=== PATIENT | female | born 1975 | race Caucasian/White ===

== ENCOUNTER 2019-05-29 12:43 | Emergency (ER) | payer MEDICAID ==
[~2019-05-29] VITALS: Ht 162.6 cm; Wt 81.0 kg
[2019-05-29] MEDS ORDERED: KETOROLAC 30MG/ML VIAL IV STA (16:08)
[2019-05-29] MEDS ORDERED: SODIUM CHLORIDE 0.9% 1,000 ML IV ONE (16:08)
[2019-05-29 16:30] LABS: CLARITY URINE TURBID (CLEAR); COLOR URINE YELLOW (YELLOW); KETONES URINE NEGATIVE (NEGATIVE); LEUKOCYTE ESTERASE URINE 3+ (NEGATIVE); NITRITE URINE POSITIVE (NEGATIVE); OCCULT BLOOD URINE 3+ (NEGATIVE); PH URINE 5.5 (4.5-8.0); PROTEIN URINE 1+ (NEGATIVE); SPECIFIC GRAVITY URINE 1.013 (1.005-1.030); UROBILINOGEN URINE 0.2 E.U./dL (0.2-1.0)
[2019-05-29 16:48] LABS: BASOPHILS % 0.5 % (0.0-2.0); HEMATOCRIT. 37.8 % (36.0-48.0); HEMOGLOBIN. 12.6 g/dL (12.0-16.0); LYMPHOCYTES % 30.3 % (20.0-50.0); MEAN CORPUSCULAR HEMOGLOBIN 27.3 pg (28.0-32.0); MEAN CORPUSCULAR VOLUME 81.8 fL (81.0-99.0); MEAN PLATELET VOLUME 8.1 fl (7.4-10.4); MONOCYTES % 6.4 % (2.0-8.0); NEUTROPHILS % 61.8 % (40.0-76.0); PLATELET 303 x1000/uL (130-400); RED BLOOD CELL COUNT 4.62 mill/uL (4.2-5.4); RED CELL DISTRIBUTION WIDTH 14.4 % (11.6-14.6)
[2019-05-29 16:52] LABS: CHLORIDE 108 mEq/L (98-107)
[2019-05-29] MEDS ORDERED: CEFTRIAXONE 2 G PREMIX 50 ML IV ONE (17:15)
[2019-05-29 19:21] VITALS: BP 121/60
== END 2019-05-29 19:24 | disposition home or self-care (01) ==
LOC: ER 12:43
DX: N12 Tubulo-interstitial nephritis, not specified as acute or chronic (principal); R51 Headache; R31.9 Hematuria, unspecified; R42 Dizziness and giddiness; R30.0 Dysuria; R50.9 Fever, unspecified; Z90.49 Acquired absence of other specified parts of digestive tract; Z86.73 Personal history of transient ischemic attack (TIA), and cerebral infarction without residual deficits; Z87.440 Personal history of urinary (tract) infections
CPT/HCPCS: 36415; 76770; 80053; 81003; 83690; 85025; 87077; 87086; 87186; 96361; 96365; 96375; 99284; J0696; J1885; J7030

== ENCOUNTER 2020-04-09 13:10 | Emergency (ER) | payer MEDICAID ==
[~2020-04-09] VITALS: Ht 165.1 cm; Wt 74.0 kg
[2020-04-09] MEDS ORDERED: KETOROLAC 30MG/ML VIAL IV STA (14:05)
[2020-04-09] MEDS ORDERED: CEFTRIAXONE 1 G PREMIX 50 ML IV ONE (14:15)
[2020-04-09] MEDS ORDERED: SODIUM CHLORIDE 0.9% 1,000 ML IV ONE (14:15)
[2020-04-09 14:31] LABS: CLARITY URINE CLOUDY (CLEAR); COLOR URINE YELLOW (YELLOW); KETONES URINE NEGATIVE (NEGATIVE); LEUKOCYTE ESTERASE URINE 1+ (NEGATIVE); NITRITE URINE NEGATIVE (NEGATIVE); OCCULT BLOOD URINE NEGATIVE (NEGATIVE); PROTEIN URINE NEGATIVE (NEGATIVE); SPECIFIC GRAVITY URINE 1.007 (1.005-1.030); UROBILINOGEN URINE 0.2 E.U./dL (0.2-1.0)
[2020-04-09 14:33] LABS: BASOPHILS % 0.7 % (0.0-2.0); HEMOGLOBIN. 12.5 g/dL (12.0-16.0); LYMPHOCYTES % 37.1 % (20.0-50.0); MEAN CORPUSCULAR HEMOGLOBIN 27.6 pg (28.0-32.0); MEAN CORPUSCULAR VOLUME 81.5 fL (81.0-99.0); MONOCYTES % 8.8 % (2.0-8.0); NEUTROPHILS % 51.4 % (40.0-76.0); PLATELET 224 x1000/uL (130-400); RED BLOOD CELL COUNT 4.54 mill/uL (4.2-5.4); RED CELL DISTRIBUTION WIDTH 14.4 % (11.6-14.6)
[2020-04-09 14:48] LABS: CHLORIDE 109 mEq/L (98-107)
[2020-04-09 18:06] VITALS: BP 105/56
== END 2020-04-09 18:10 | disposition home or self-care (01) ==
LOC: ER 14:14
DX: N12 Tubulo-interstitial nephritis, not specified as acute or chronic (principal); R03.0 Elevated blood-pressure reading, without diagnosis of hypertension
CPT/HCPCS: 36415; 74176; 80053; 81003; 81025; 83690; 85025; 93005; 96365; 96375; 99285; J0696; J1885; J7030

== ENCOUNTER 2020-11-06 12:08 | Emergency (ER) | payer MEDICAID ==
[~2020-11-06] VITALS: Ht 154.9 cm; Wt 78.0 kg
[2020-11-06] MEDS ORDERED: IBUPROFEN 600MG TABLET PO STA (12:28)
[2020-11-06] MEDS ORDERED: NAPR-681 PO (14:53)
[2020-11-06] MEDS ORDERED: NEOM10DR11 RIGHT EAR (14:53)
[2020-11-06] MEDS ORDERED: CETI10TA10 PO (16:26)
[2020-11-06] MEDS ORDERED: MECLIZINE 25MG TABLET PO ONE (16:30)
[2020-11-06 16:42] VITALS: BP 121/68
== END 2020-11-06 16:45 | disposition home or self-care (01) ==
LOC: ER 12:08
DX: H61.21 Impacted cerumen, right ear (principal); H60.91 Unspecified otitis externa, right ear; H92.01 Otalgia, right ear
CPT/HCPCS: 69209; 99283; J8597

== ENCOUNTER 2021-11-28 06:22 | Emergency (ER) | payer MEDICAID ==
[~2021-11-28] VITALS: Ht 162.6 cm; Wt 84.0 kg
[~2021-11-28 06:22] MED LIST: CETI10TA11 PO; NAPR-681 PO; NEOM10DR11 RIGHT EAR
[2021-11-28 06:39] VITALS: BP 118/47
[2021-11-28 08:18] LABS: CLARITY URINE CLOUDY (CLEAR); COLOR URINE YELLOW (YELLOW); KETONES URINE NEGATIVE (NEGATIVE); LEUKOCYTE ESTERASE URINE 3+ (NEGATIVE); NITRITE URINE POSITIVE (NEGATIVE); OCCULT BLOOD URINE 2+ (NEGATIVE); PH URINE 5.5 (4.5-8.0); PROTEIN URINE 1+ (NEGATIVE); SPECIFIC GRAVITY URINE 1.009 (1.005-1.030); UROBILINOGEN URINE 0.2 E.U./dL (0.2-1.0)
[2021-11-28] MEDS ORDERED: NITR100C PO (08:32)
== END 2021-11-28 08:57 | disposition home or self-care (01) ==
LOC: ER 06:22
DX: N39.0 Urinary tract infection, site not specified (principal); Z90.49 Acquired absence of other specified parts of digestive tract
CPT/HCPCS: 81003; 87077; 87186; 99283